=== PATIENT | female | born 1970 | race Caucasian/White ===

== ENCOUNTER → 2023-07-05 15:11 | Outpatient (REF) | payer OTHER, SELFPAY | LOC: RAD 15:11 | PROVIDERS: ATTENDING PHYSICIAN Surgery Vascular Surgery; FAMILY PHYSICIAN Family Medicine | DX: N18.9 Chronic kidney disease, unspecified (principal) | CPT/HCPCS: 93985 ==

== ENCOUNTER 2023-07-07 09:01 | Day surgery (SDC) | payer OTHER, SELFPAY ==
[2023-07-07] VITALS (12 sets, daily range): BP systolic 128–154; BP diastolic 84–103
[2023-07-07 09:19] LABS: Hematocrit 35.2 % (37.0-47.0); Hemoglobin 12.3 g/dL (12.0-16.0); Mean Corp Hgb Conc. 34.9 g/dL (33.0-37.0); Mean Corpuscular Hgb 28.4 pg (27.0-31.0); Mean Corpuscular Volume 81.3 fL (81.0-99.0); Mean Platelet Volume 11.5 fL (7.4-10.4); Platelet Count 293 10^3/uL (130-400); Red Blood Cell Count 4.33 10^6/uL (4.20-5.40); Red Cell Dist. Width 12.8 % (11.5-14.5); White Blood Cell Count 5.4 10^3/uL (4.8-10.8)
[2023-07-07 09:29] LABS: INR 0.99; PT 12.9 Sec (11.4-14.6)
[2023-07-07 09:30] LABS: APTT 25.3 Sec (23.4-35.0)
[2023-07-07 09:36] LABS: Blood Urea Nitrogen 76 mg/dl (7-17); Calcium 9.3 mg/dl (8.4-10.2); Carbon Dioxide 22 mmol/L (22-30); Chloride 100 mmol/L (98-107); Glucose 105 mg/dl (70-99); Sodium 136 mmol/L (135-145); eGFR 10.93
[2023-07-07] MEDS: BACTROBAN NASAL 1 GRAM NASAL (10:32)
[2023-07-07] MEDS: PERIDEX 0.12% ORAL RINSE 15 ML PO (10:32)
--- NOTE | 2023-07-07 11:07 | W.SUR.PREOP ---
Pre-Operative Surgical Note
-
I have examined this patient prior to the performance of the scheduled procedure.
The patient's condition is unchanged from the time of the current History and
Physical and the patient is able to undergo the scheduled procedure.
--- NOTE | 2023-07-07 11:59 | PTCARENOTE ---
Pt's Potassium on labs today 3.0 Dr Sanchez, Dr Olmstead, and Hallie Quesada made aware at 1035. No further orders given.
[2023-07-07] MEDS: DILAUDID 0.5 MG IV (13:34)
--- NOTE | 2023-07-07 13:49 | W.IMMPOSTOP ---
Surgical Immed Post Op Note
-
Primary Surgeon: Shaun Sanchez III, MD
Assisting Surgeon: Jose Alfredo Patrick MD
Pre-op Diagnosis: CKD
Post-op Diagnosis: CKD
Procedure Performed: Radiocephalic AV Fistula
Anesthesia Type: General
Specimen / Cultures: NA
Estimated Blood Loss: 25cc
Complications: NA
Operative Findings:
Given vein mapping findings and difficulty with finding clear proximal upper extremity cephalic vein on US, decision was made to proceed with a distal radio-cephalic fistula. A 5cm incision was made in the distal lateral arm. Sharp dissection used
to identify and isolate the cephalic vein and radial artery. Proximal and distal control of radial arteries with vessel loops. Vein was tied and transected at appropriate length for anastamosis. Arteriotomy was made and the vein was sewn to the
artery in an end-side fashion using continuous 7-0 prolene suture. Hemostasis was achieved and overlying site packed with fibrillar. Overlying subcutaneous tissue and skin were closed with 3-0 vicry, 4-0 Monocryl suture, and skin glue. Thrill was
palpable postoperatively and marked accordingly.
--- NOTE | 2023-07-07 17:32 | OR.RPT ---
Operative Report
Operative Report
Date of Operation: 07/07/2023
Pre Op Diagnosis: Chronic kidney disease with anticipated need for hemodialysis
Post Op Diagnosis: Chronic kidney disease with anticipated need for hemodialysis
Procedure: Creation of left wrist radiocephalic arteriovenous fistula
Surgeon: Shaun Sanchez III, MD
Hospital Superintendent: Jose Alfredo Patrick MD PGY-1
Anesthesia: General
Complications: None
Estimated Blood Loss: Less than 20 cc
History and Indications for Procedure: 53-year-old female with anticipated need for hemodialysis and need for hemodialysis access.
Procedure in Detail: Nohemy Swartz was correctly identified and brought to the operating room. She was placed supine on the operating table with the left arm abducted 90 degrees on a side table. After adequate induction of anesthesia I performed
intraoperative ultrasound on the veins of the left arm. I identified and measured the cephalic vein in the wrist and forearm. The vein was of adequate quality and diameter uniformly for AV fistula creation. The left radial artery was also
identified at the wrist. An appropriate skin incision was marked at the wrist between the radial artery and cephalic vein. The left hand, wrist, forearm and upper arm were circumferentially prepped and draped in usual sterile fashion. Preoperative
antibiotics were administered. A timeout procedure was performed with the nursing and anesthesia staff confirming the patient's identity as well as the nature and laterality of the procedure.
A skin incision was made at the wrist through the previously placed skin susana. A combination of electrocautery and sharp dissection was used to expose the cephalic vein. Branches were ligated and divided between silk ties and metal clips. The
radial artery was exposed using sharp dissection. Proximal and distal control was obtained on the radial artery with vessel loops. The distal end of the cephalic vein was ligated with a silk tie and then transected with scissors. The vein was
flushed with heparinized saline solution. The vein flushed easily with no resistance. The radial artery vessel loops were secured. An arteriotomy was made with an ophthalmic blade and extended slightly proximally and distally with fine Tipton
scissors. The proximal and distal radial artery were flushed with heparinized saline solution. An end-to-side anastomosis was created using a running 7-0 Prolene suture. Prior to the completion of the anastomosis the artery was allowed to
temporarily forward bleed and backbleed. The area under the anastomosis was flushed with heparinized saline solution to remove any potential thrombus or debris. The anastomosis was completed. The proximal vessel loop was released first. After
several heartbeats the distal vessel loop was released. There was an easily palpable thrill in the cephalic vein. The anastomotic suture line was closely inspected and hemostasis was achieved. Hemostasis was achieved in the wound bed. The wound
was irrigated with saline solution. There was an easily palpable radial pulse proximal and distal to the arteriovenous anastomosis. Local anesthesia was infiltrated into the skin and subcutaneous tissue around the wound. The wound was closed in
layers. Skin glue was applied.
At the conclusion of the case the patient had an easily palpable thrill in the cephalic vein in the forearm. The patient had a palpable radial pulse at the left wrist.
The patient tolerated the procedure well and was taken to the recovery room in good condition.
Attestation: I was present and responsible for the entire procedure
Signed:
Shaun Sanchez III, MD
[facility]
[phone] (faho)
== END 2023-07-07 15:36 | disposition home or self-care (01) ==
LOC: CATH 09:01
PROVIDERS: ATTENDING PHYSICIAN Surgery Vascular Surgery; FAMILY PHYSICIAN Family Medicine
DX: I12.9 Hypertensive chronic kidney disease with stage 1 through stage 4 chronic kidney disease, or unspecified chronic kidney disease (principal); N18.9 Chronic kidney disease, unspecified; Q61.3 Polycystic kidney, unspecified; N20.0 Calculus of kidney; Z87.891 Personal history of nicotine dependence
CPT/HCPCS: 36821; 80048; 85027; 85610; 85730; 86850; 86900; 86901; 93005

== ENCOUNTER → 2023-08-21 09:15 | Outpatient (REF) | payer OTHER, SELFPAY | LOC: RAD 09:15 | PROVIDERS: ATTENDING PHYSICIAN Registered Nurse; FAMILY PHYSICIAN Family Medicine | DX: I77.0 Arteriovenous fistula, acquired (principal) | CPT/HCPCS: 93990 ==

== ENCOUNTER → 2023-10-07 06:21 | Outpatient (REF) | payer OTHER, SELFPAY | LOC: MRI 3T 06:21 | PROVIDERS: ATTENDING PHYSICIAN Internal Medicine Nephrology; FAMILY PHYSICIAN Family Medicine | DX: Q61.2 Polycystic kidney, adult type (principal); N18.5 Chronic kidney disease, stage 5 | CPT/HCPCS: 70544 ==

== ENCOUNTER → 2024-02-19 07:32 | Outpatient (REF) | payer OTHER, SELFPAY | LOC: HWRAD 07:32 | PROVIDERS: FAMILY PHYSICIAN Family Medicine | DX: N17.9 Acute kidney failure, unspecified (principal); Q61.2 Polycystic kidney, adult type; R79.89 Other specified abnormal findings of blood chemistry; Z01.818 Encounter for other preprocedural examination; I10 Essential (primary) hypertension; I12.9 Hypertensive chronic kidney disease with stage 1 through stage 4 chronic kidney disease, or unspecified chronic kidney disease; R80.9 Proteinuria, unspecified; N18.5 Chronic kidney disease, stage 5 | CPT/HCPCS: 93880 ==

== ENCOUNTER → 2024-02-21 07:21 | Outpatient (REF) | payer OTHER, SELFPAY | LOC: DHCBC/DCA 07:21 | PROVIDERS: FAMILY PHYSICIAN Family Medicine | DX: N17.9 Acute kidney failure, unspecified (principal); Q61.2 Polycystic kidney, adult type; R79.89 Other specified abnormal findings of blood chemistry; Z01.818 Encounter for other preprocedural examination; I10 Essential (primary) hypertension; I12.9 Hypertensive chronic kidney disease with stage 1 through stage 4 chronic kidney disease, or unspecified chronic kidney disease; R80.9 Proteinuria, unspecified; N18.5 Chronic kidney disease, stage 5 | CPT/HCPCS: 78452; 93017; A9500; J2785 ==

== ENCOUNTER → 2024-04-22 08:41 | Outpatient (REF) | payer OTHER, SELFPAY | LOC: HWWDC 08:41 | PROVIDERS: ATTENDING PHYSICIAN Family Medicine | DX: Z12.31 Encounter for screening mammogram for malignant neoplasm of breast (principal) | CPT/HCPCS: 77063; 77067 ==

== ENCOUNTER 2024-05-11 09:24 | Emergency (ER) | payer OTHER, SELFPAY ==
[2024-05-11 09:26] VITALS: BP 136/87
--- NOTE | 2024-05-11 10:06 | ED.GENMED ---
History of Present Illness
General
Chief Complaint: Musculo-Skeletal Complaint
Source: patient
Exam Limitations: none
Time Seen by Provider: 05/11/24 09:40
History of Present Illness
History of Present Illness:
54yoF with a history of polycystic kidney disease and hypertension presenting for toe pain. Patient hit her right little toe on the edge of her bed yesterday morning. She has been having persistent pain since that time. She looked at her toe this
morning and noticed that it appeared deformed and she became worried that it was dislocated. She has been taking Tylenol for her pain. No paresthesias. She denies other concerns.
Past History
Past History
ED Past Medical History: HTN and Other (plycystic kidney disease); Negative Asthma, Hypercholesterolemia or NIDDM
ED Past Surgical History: None
Social History
Tobacco: Non-smoker
Alcohol: Occasional
Personal:
Living: with family
Phy Exam
General Physical Exam
General Presentation: well appearing and no apparent distress
General age: appears stated age
General Skin: warm and dry
General Habitus: normal
General Mental: alert
ENT Exam
ENT Exam: normocephalic
Neurological Exam
Neurological Exam: alert
Musculoskeletal Exam
Musculoskeletal Exam: other (Deformity noted to the R 5th toe with swelling and ecchymosis. Skin intact. ROM intact. Cap refill and sensation normal at distal digit. 2+ DP pulse. )
Skin Exam
Skin Exam: normal color and warm/dry
Psychiatric Exam
Psychiatric Exam: normal mood/affect
Course
Orders/Labs/Results
Orders:
Orders
05/11/24 09:28
Toes 2 Views, Right [CR Toe(s) Min 2 Vw Right] Urgent
Comment: toe hit dresser yesterday
Reason For Exam: right 5th toe pain
05/11/24 09:52
Luke Tape Right-Treatment ONCE
Cast Shoe Right-Treatment ONCE
Vital Signs
Initial and Last Documented VS:
Initial Vital Signs
Temp Pulse Resp BP Pulse Ox
98.2 F 66 16 136/87 98
05/11/24 09:26 05/11/24 09:26 05/11/24 09:26 05/11/24 09:26 05/11/24 09:26
Last Documented Vital Signs
Temp Pulse Resp BP Pulse Ox
98.2 F 66 16 136/87 98
05/11/24 09:26 05/11/24 09:26 05/11/24 09:26 05/11/24 09:26 05/11/24 09:26
MDM/Problems Addressed
Differential Diagnosis Includes:
54yoF here for R 5th toe pain after an injury yesterday. Deformity and ecchymosis noted on exam. Skin intact. Digit is neurovascularly intact. Differential diagnosis includes: fracture vs. dislocation
X-rays obtained which shows a displaced proximal phalanx fracture per my interpretation. Attempted reduction without much improvement. Digit was luke taped by nursing staff and cast shoe provided. Advised f/u with podiatry.
*Critical Care Note
Total Time (30-74mins, 75-104mins- exclusive of procedures): Not Applicable
ED Attending Note
-
Portions of this chart may have been created with voice recognition software.� Occasional wrong word or��sound alike� substitutions may have occurred due to the inherent limitations of voice recognition software.
Discharge Plan
Departure
Patient Disposition: Home (Routine Discharge)
Date of Disposition: 05/11/24
Time of Disposition: 09:53
Patient with high blood pressure during this ER visit?: No
Discharge Problem:
Closed fracture of toe
Instructions: Toe Fracture ED
Prescriptions:
No Action
clonidine HCl 0.1 mg Tablet
0.1 mg PO .3-4 TIMES PER DAY
nifedipine 30 mg Tablet Extended Release
60 mg PO BID
furosemide 20 mg Tablet
40 mg PO DAILY
oxycodone 5 mg Tablet
5 mg PO Q4HPRN PRN (Reason: moderate pain) Qty: 3 0RF
Referrals:
David Barron DPM [Active] -
Activity Restrictions/Additional Instructions:
Apply ice to affected area. Take Tylenol for pain.
Luke tape the toe for immobilization and wear the cast shoe for support.
Please follow-up with podiatry.
Interventions
Interventions:
*Risk Screen - Suicide Last Done: 05/11/24 09:26
*General Assessment Last Done: 05/11/24 10:51
*Neglect/Abuse Screening Last Done: 05/11/24 09:26
ED- Fall Risk Assessment Last Done: 05/11/24 10:51
*ED COVID-19 Vaccine History Last Done: 05/11/24 10:51
*Nursing Disposition Last Done: 05/11/24 10:51
ED-Musculoskeletal Assessment Last Done: 05/11/24 10:51
Discharge Date and Time
Discharge Date/Time: 05/11/24 09:55
Print Language: SINHALA
== END 2024-05-11 09:55 | disposition home or self-care (01) ==
LOC: EMR 09:24
PROVIDERS: EMERGENCY PHYSICIAN Emergency Medicine; FAMILY PHYSICIAN Family Medicine
DX: S92.511A Displaced fracture of proximal phalanx of right lesser toe(s), initial encounter for closed fracture (principal); W22.09XA Striking against other stationary object, initial encounter; I10 Essential (primary) hypertension
CPT/HCPCS: 99283; 73660

== ENCOUNTER 2024-12-17 06:33 | Day surgery (SDC) | payer OTHER, SELFPAY ==
[2024-12-17 06:43] VITALS: BMI 24.5
[2024-12-17 06:44] VITALS: BMI 24.5
[2024-12-17 06:50] VITALS: BP 130/80
[2024-12-17] MEDS: TYLENOL 1000 MG PO (06:58)
--- NOTE | 2024-12-17 07:08 | HP.FOC2 ---
Focused History & Physical
Chief Complaint
HPI:
Chief Complaint: Upper back lipoma
HPI / Indication for Planned Procedure: This is a 54-year-old female who presents with a symptomatic large upper back lipoma. Will plan for open excision.
Relevant Past Medical History: Other (CKD)
Relevant Social History: Negative
Relevant Family History: Negative
Relevant Past Surgical History: Negative
Review of Systems
Review of Pertinent Systems: All Systems Negative
Medication
See Medication form for detailed medications: Yes
Medication List (including Herbals & OTC):
furosemide 20 mg tablet 40 mg PO DAILY 07/03/23
nifedipine 30 mg tablet,extended release 60 mg PO BID 07/03/23
calcitriol 1 cap PO DAILY 12/10/24
labetalol 200 mg tablet 400 mg PO BID 12/10/24
Medications Reviewed: Yes
Allergies and Reactions
Patient has Allergies: No
Noted Allergies and Reactions:
Allergy/AdvReac Type Severity Reaction Status Date / Time
No Known Allergies Allergy Verified 12/17/24 06:38
Pertinent Physical Exam
All Other Systems: Negative
Head/Neck: Normal
Diagnosis / Assessment
This is a 54-year-old female who presents with a symptomatic large upper back lipoma.
Plan / Procedure
Will plan for open excision.
--- NOTE | 2024-12-17 08:19 | W.IMMPOSTOP ---
Surgical Immed Post Op Note
-
Primary Surgeon: Hilton Morales MD
Assisting Surgeon: None
Pre-op Diagnosis: Upper back lipoma
Post-op Diagnosis: Intramuscular lipoma of the upper back
Procedure Performed: Open excision of an upper back intramuscular lipoma
Anesthesia Type: General
Specimen / Cultures: 8 x 7 x 3 cm unencapsulated lipoma with extension into the muscle fibers of the upper back
Estimated Blood Loss: 3 cc
Complications: None
Operative Findings: A horizontal linear incision was made along the skin line in the right upper back. Encountered an 8 x 7 x 3 cm unencapsulated lipoma starting just below the dermis and extending deep into the fascia of the underlying muscle of
the right upper back. The lipoma was carefully teased away from this tissue and from the surrounding normal subcutaneous fat. It was multilobulated. No visible or palpable residual lipomatous tissue was left behind.
--- NOTE | 2024-12-17 08:21 | OR.RPT ---
Operative Report
Operative Report
Patient Name: Nohemy Swartz
: 1970
Date of Operation: 12/17/2024
Pre-op Diagnosis: Upper back lipoma
Post-op Diagnosis: Intramuscular lipoma of the upper back
Procedure Performed: Open excision of an upper back intramuscular lipoma
Surgeon(s):
Dr. Morales
Supervisor Covering And Lining(s):
GA Hyman
Anesthesia: MAC
Specimen / Cultures: 8 x 7 x 3 cm unencapsulated lipoma with extension into the muscle fibers of the upper back
Estimated Blood Loss: 3 cc
Indication for surgery:
This is a 54-year-old female with a symptomatic and enlarging subcutaneous mass in her right upper back. After evaluation in the office they were diagnosed with a lipoma. After discussion of risk benefits and alternatives they elected and were
consented for surgery.
Operative Findings: A horizontal linear incision was made along the skin line in the right upper back. Encountered an 8 x 7 x 3 cm unencapsulated lipoma starting just below the dermis and extending deep into the fascia of the underlying muscle of
the right upper back. The lipoma was carefully teased away from this tissue and from the surrounding normal subcutaneous fat. It was multilobulated. No visible or palpable residual lipomatous tissue was left behind.
Details of the operation:
The patient was brought to the operating room a placed in the prone position. After appropriate sedation by anesthesia, the area of the back was prepped and draped in the usual fashion. A linear incision over natural skin line was made over the
mass and carried down through the subcutaneous tissue. The Lipoma was identified and found to be unencapsulated and extending deep into the fascia of the underlying muscle. The lipoma was freed circumferentially taking care not to come across the
many interdigitating extensions that it had. The specimen which measured roughly 8 x 7 x 3 cm was passed off the field. The cavity was irrigated and hemostasis was achieved. There was no residual palpable or visible lipomatous tissue. The space
was closed with interrupted 3-0 Vicryl sutures. The dermis was then approximated using interrupted 3-0 Vicryl sutures followed by a running 4-0 monocryl, followed by dermabond. All counts were correct at the end of procedure. The patient was then
transferred to the PACU for recovery.
I was the attending physician and performed the procedure with assistance of the PA above. The assistance of GA Hyman was required due to the complexity of the procedure. During the procedure Carlene assisted with retraction, resection, and
closure of the wound. I was present for all portions of the case, excluding skin closure.
Hilton Morales MD
[2024-12-17 08:30] VITALS: BP 106/67
[2024-12-17 08:45] VITALS: BP 105/76
[2024-12-17 09:00] VITALS: BP 122/75
[2024-12-17 09:15] VITALS: BP 131/79
== END 2024-12-17 09:30 | disposition home or self-care (01) ==
LOC: SDS 06:33
PROVIDERS: ATTENDING PHYSICIAN Surgery
DX: D17.1 Benign lipomatous neoplasm of skin and subcutaneous tissue of trunk (principal)
CPT/HCPCS: 21931; 88304